=== PATIENT | female | born 1990 | race Two or more races ===

== ENCOUNTER 2019-07-23 12:24 | Emergency (ER) | payer OTHER ==
[~2019-07-23] VITALS: Ht 157.5 cm; Wt 36.3 kg
[2019-07-23] MEDS ORDERED: DOLOGESIC 500-1 EACH PO (14:49)
[2019-07-23] MEDS ORDERED: TYLENOL325 MG PO (15:39)
== END 2019-07-23 15:53 | disposition home or self-care (01) ==
LOC: ER 12:24
DX: M54.5 Low back pain (principal)